=== PATIENT | male | born 1965 | race Hispanic/Latino ===

== ENCOUNTER 2020-06-06 11:40 | Emergency (ER) | payer SELFPAY ==
[2020-06-06 11:55] VITALS: BP 248/153
--- NOTE | 2020-06-06 12:05 | Event Note ---
ED Screening Note ED Screening Note: laceration to posterior scalp states that he was working on a car and a pipe hit him in the head no n/v, dizziness, no vision changes, no numbness or weakness tdap unsure states he had dental work and was advised he has elevated BP and he never followed up This initial assessment/diagnostic orders/clinical plan/treatment(s) is/are subject to change based on patients health status, clinical progression and re- assessment by fellow clinical providers in the ED. Further treatment and workup at subsequent clinical providers discretion. Patient/guardian urged not to elope from the ED as their condition may be serious if not clinically assessed and managed. Initial orders include: ct head
--- NOTE | 2020-06-06 12:48 | Cat Scan Report ---
CT head/brain wo con INDICATION: laceration to posterior scalp. Head trauma. TECHNIQUE: Routine CT head without contrast. All CT scans at this location are performed using CT dose reduction for ALARA by means of automated exposure control. COMPARISON: None. FINDINGS: BRAIN / INTRACRANIAL CONTENTS: No acute hemorrhage, brain edema, mass effect, or hydrocephalus. Chely l ibanez-white differentiation. There is moderate chronic small vessel ischemic change in the cerebral white matter as well as multiple chronic appearing lacunar infarcts in the periventricular white lissette er. There are atherosclerotic calcifications in the intracranial carotid and vertebral arteries. CALVARIUM/SKULL BASE/CRANIOCERVICAL JUNCTION: No evidence of fracture. ORBITS: No significant abnormality of visualized orbits. SINUSES / MASTOIDS: No significant abnormality of visualized sinuses and mastoid air cells. ADDITIONAL FINDINGS: None. IMPRESSION: 1. No acute post-traumatic intracranial abnormality. Signer Name: Kang Salvador MD Signed: 06/06/2020 12:43 PM Workstation Name: [id number]
== END 2020-06-06 14:45 | disposition other institution (70) ==
LOC: ED 11:40
DX: R51.9 Headache, unspecified (principal); Z53.21 Procedure and treatment not carried out due to patient leaving prior to being seen by health care provider
CPT/HCPCS: 70450